=== PATIENT | male | born 1995 | race African-American/Black ===

== ENCOUNTER 2019-04-26 23:43 | Emergency (ER) | payer OTHER ==
[2019-04-27] MEDS ORDERED: ACETAMINOPHEN 325 MG TABLET ONE (00:58)
[2019-04-27] MEDS ORDERED: IBUPROFEN 400 MG TAB ONE (00:58)
--- NOTE | 2019-04-27 02:47 | EDPHYS ---
Physician Documentation [facility] Name: Sean Buitrago Age: 23 yrs Sex: Male : 1995 Arrival Date: 04/26/2019 Time: 23:46 Bed 20 Private MD: ED Physician Ja Ramírez HPI: 04/27 00:05 This 23 yrs old Black Male presents to ER via Ambulatory with complaints of Back Injury.cp 00:05 The patient or guardian complains of an injury, pain, that is acute. cp 00:05 The symptoms are located on the cervical and thoracic spine. Onset: The cp symptoms/episode began/occurred today. Context: The neck injury/problem resulted from performing backward flip, patient reports he landed on back of head and neck. Patient reports brief LOC and admits to drinking alcohol tonight. Associated signs and symptoms: Pertinent positives: neck and upper back pain, Pertinent negatives: bladder incontinence, bowel incontinence, numbness, weakness. Severity of symptoms: in the emergency department the symptoms are unchanged, despite home interventions. Historical: - Allergies: 04/26 23:51 No Known Allergies; la1 - PMHx: 23:51 None; la1 - Immunization history:: Adult Immunizations up to date. - Social history:: Smoking status: Patient uses tobacco products, smokes one-half pack cigarettes per day. - Ebola Screening: : No symptoms or risks identified at this time. ROS: 04/27 00:10 Constitutional: Negative for body aches, chills, fever, poor PO intake. cp 00:10 Eyes: Negative for injury, pain, redness, and discharge. cp 00:10 Neck: Positive for pain with movement, pain at rest, bony tenderness, Negative for stiffness. 00:10 Cardiovascular: Negative for chest pain. 00:10 Respiratory: Negative for cough, shortness of breath, wheezing. 00:10 Abdomen/GI: Negative for abdominal pain, nausea, vomiting, and diarrhea. 00:10 Back: Positive for pain at rest, pain with movement, of the thoracic area. 00:10 Skin: Negative for rash. 00:10 Neuro: Positive for loss of consciousness, Negative for altered mental status, numbness, weakness. 00:10 All other systems are negative. Exam: 00:20 Head/Face: Normocephalic, atraumatic. cp 00:20 Constitutional: The patient appears in no acute distress, alert, awake, non-toxic, well developed, well nourished. 00:20 Eyes: Periorbital structures: appear normal, Pupils: equal, round, and reactive to cp light and accomodation, Extraocular movements: intact throughout, Sclera: no appreciated abnormality, Lids and lashes: appear normal, bilaterally. 00:20 ENT: External ear(s): are unremarkable, Ear canal(s): are normal, clear, TM's: dullness, bilaterally, Nose: is normal, Mouth: Lips: moist, Oral mucosa: pink and intact, moist, Posterior pharynx: is normal, airway is patent, no erythema, no exudate. 00:20 Neck: C-spine: C-collar placed in ED, vertebral tenderness, that is mild, appreciated at C6 and C7, crepitus, is not appreciated. 00:20 Chest/axilla: Inspection: normal, Palpation: is normal, no crepitus, no tenderness. 00:20 Cardiovascular: Rate: normal, Rhythm: regular. 00:20 Respiratory: the patient does not display signs of respiratory distress, Respirations: normal, no use of accessory muscles, no retractions, no splinting, no tachypnea, Breath sounds: are clear throughout, no decreased breath sounds, no stridor, no wheezing. 00:20 Abdomen/GI: Inspection: abdomen appears normal, Palpation: abdomen is soft and non-tender, in all quadrants, rebound tenderness, is not appreciated, voluntary guarding, is not appreciated, involuntary guarding, is not appreciated. 00:20 Back: pain, that is mild, of the thoracic area. 00:20 Musculoskeletal/extremity: Exam is negative for decreased range of motion, deformity, ROM: intact in all extremities. 00:20 Neuro: Orientation: to person, place \T\ time. Mentation: lucid, able to follow commands, Motor: moves all fours, strength is normal, Sensation: no obvious gross deficits. Vital Signs: 04/26 23:51 BP 130 / 090; Pulse 110; Resp 16; Temp 97.8; Pulse Ox 98% on R/A; Weight 62.6 kg; la1 Height 6 ft. 0 in. (182.88 cm); 04/27 00:15 BP 116 / 86; Pulse 70; Resp 16 S; Pulse Ox 100% on R/A; cc3 01:48 BP 124 / 89; Pulse 61; Resp 17 S; Pulse Ox 100% on R/A; cc3 02:29 BP 116 / 78; Pulse 69; Resp 16 S; Pulse Ox 100% on R/A; cc3 03:00 BP 115 / 81; Pulse 67; Resp 16 S; Pulse Ox 100% on R/A; cc3 04/26 23:51 Body Mass Index 18.72 (62.60 kg, 182.88 cm) la1 [place] Coma Score: 00:20 Eye Response: spontaneous(4). Verbal Response: oriented(5). Motor Response: obeys cp commands(6). Total: 15. MDM: 04/26 23:54 Patient medically screened. cp 04/27 00:45 Differential diagnosis: C-Spine Fracture Unstable Vertebral Fracture Whiplash Injury cp thoracic fracture, concussion. 02:45 Data reviewed: vital signs, nurses notes, radiologic studies, CT scan. cp 02:45 Counseling: I had a detailed discussion with the patient and/or guardian regarding: the cp historical points, exam findings, and any diagnostic results supporting the discharge/admit diagnosis, radiology results, to return to the emergency department if symptoms worsen or persist or if there are any questions or concerns that arise at home. Special discussion: Based on the patient's history, exam and DX evaluation, there is no indication for emergent intervention or inpatient TX. It is understood by the patient/guardian that if the SXs persist or worsen they need to return immediately for re-evaluation. ED course: VSS. CT report negative for fracture or intracranial injury. Will discharge to home with head injury precautions. 04/27 00:27 Order name: CT Thoracic Spine Wo Cont cp 04/27 00:26 Order name: Cervical Collar; Complete Time: 00:48 cp 04/27 00:40 Order name: CT Head C Spine cp Administered Medications: 00:40 Drug: Ibuprofen 800 mg Route: PO; cc3 01:40 Follow up: Response: No adverse reaction; Pain is decreased cc3 00:40 Drug: Tylenol 650 mg Route: PO; cc3 01:40 Follow up: Response: No adverse reaction; Pain is decreased cc3 Disposition: 04/27/19 02:47 Discharged to Home. Impression: Strain of muscle and tendon of back wall of thorax, Strain of muscle, fascia and tendon at neck level. - Condition is Stable. - Discharge Instructions: Muscle Strain, Cervical Sprain, Neck Exercises. - Prescriptions for Ibuprofen 800 mg Oral Tablet - take 1 tablet by ORAL route every 8 hours As needed take with food; 30 tablet. Cyclobenzaprine 10 mg Oral Tablet - take 1 tablet by ORAL route every 8 hours As needed; 20 tablet. - Medication Reconciliation Form, Thank You Letter, Antibiotic Education, Prescription Opioid Use form. - Follow up: Private Physician; When: 2 - 3 days; Reason: Recheck today's complaints. - Problem is new. - Symptoms have improved. Addendum: 04/28/2019 19:37 Co-signature as Attending Physician, Ja Ramírez MD. g s Signatures: Dispatcher [employer] EDMS Aravind Williamson RN RN la1 Kaleb Henry PA PA cp Starr, Gregory, MD MD Teri Rojas 3 Corrections: (The following items were deleted from the chart) 04/27 02:14 00:29 C Spine Wo Con+CT.RAD.BRZ ordered. EDHI EDMS 03:15 02:47 04/27/2019 02:47 Discharged to Home. Impression: Strain of muscle and tendon of cc3 back wall of thorax; Strain of muscle, fascia and tendon at neck level. Condition is Stable. Forms are Medication Reconciliation Form, Thank You Letter, Antibiotic Education, Prescription Opioid Use. Follow up: Private Physician; When: 2 - 3 days; Reason: Recheck today's complaints. Problem is new. Symptoms have improved. cp
--- NOTE | 2019-04-27 02:47 | ER ---
Nurse's Notes [facility] Name: Sean Buitrago Age: 23 yrs Sex: Male : 1995 Arrival Date: 04/26/2019 Time: 23:46 Bed 20 Private MD: Diagnosis: Strain of muscle and tendon of back wall of thorax;Strain of muscle, fascia and tendon at neck level Presentation: 04/26 23:50 Presenting complaint: Patient states: i BROKE MY BACK A YEAR AGO AND TONIGHT I DID A la1 BACK FLIP AND ITS HURTING AGAIN ON THE LEFT SIDE. Transition of care: patient was not received from another setting of care. Onset of symptoms was April 26, 2019. Risk Assessment: Do you want to hurt yourself or someone else? Patient reports no desire to harm self or others. Initial Sepsis Screen: Does the patient meet any 2 criteria? No. Patient's initial sepsis screen is negative. Does the patient have a suspected source of infection? No. Patient's initial sepsis screen is negative. Care prior to arrival: None. 23:50 Method Of Arrival: Ambulatory la1 23:50 Acuity: ZHANG 4 la1 Triage Assessment: 23:55 General: Appears in no apparent distress. uncomfortable, Behavior is calm, cooperative, cc3 appropriate for age. Pain: Complains of pain in thoracic area. Historical: - Allergies: 23:51 No Known Allergies; la1 - PMHx: 23:51 None; la1 - Immunization history:: Adult Immunizations up to date. - Social history:: Smoking status: Patient uses tobacco products, smokes one-half pack cigarettes per day. - Ebola Screening: : No symptoms or risks identified at this time. Screenin:55 Abuse screen: Denies threats or abuse. Denies injuries from another. Nutritional cc3 screening: No deficits noted. Tuberculosis screening: No symptoms or risk factors identified. Fall Risk Ambulatory Aid- None/Bed Rest/Nurse Assist (0 pts). Gait- Normal/Bed Rest/Wheelchair (0 pts) Mental Status- Oriented to own ability (0 pts). Assessment: 23:55 General: Appears in no apparent distress. uncomfortable, Behavior is calm, cooperative, cc3 appropriate for age. Pain: Complains of pain in thoracic area. Neuro: Level of Consciousness is awake, alert, obeys commands, Oriented to person, place, time, situation, Appropriate for age. Cardiovascular: Denies chest pain, Patient's skin is warm and dry. Respiratory: Airway is patent Respiratory effort is even, unlabored, Respiratory pattern is regular, symmetrical. GI: Abdomen is flat. : No signs and/or symptoms were reported regarding the genitourinary system. EENT: No signs and/or symptoms were reported regarding the EENT system. Derm: No signs and/or symptoms reported regarding the dermatologic system. Musculoskeletal: Circulation, motion, and sensation intact. Range of motion: intact in all extremities. 04/27 00:18 Reassessment: Patient appears in no apparent distress at this time. Patient and/or cc3 family updated on plan of care and expected duration. Pain level reassessed. Patient is alert, oriented x 3, equal unlabored respirations, skin warm/dry/pink. 01:40 Reassessment: Patient appears in no apparent distress at this time. Patient and/or cc3 family updated on plan of care and expected duration. Pain level reassessed. Patient is alert, oriented x 3, equal unlabored respirations, skin warm/dry/pink. Patient came back from CT scan department, awaiting result. 02:20 Reassessment: Patient appears in no apparent distress at this time. Patient and/or cc3 family updated on plan of care and expected duration. Pain level reassessed. Patient is alert, oriented x 3, equal unlabored respirations, skin warm/dry/pink. 03:15 Reassessment: Patient appears in no apparent distress at this time. Patient and/or cc3 family updated on plan of care and expected duration. Pain level reassessed. Patient is alert, oriented x 3, equal unlabored respirations, skin warm/dry/pink. PA Page discharged the patient home with prescription given. No IV cannula in situ. Patient left ER vitally stable and ambulatory with his friend. Patient denies pain at this time. Patient states feeling better. Patient states symptoms have improved. Vital Signs: 04/26 23:51 BP 130 / 090; Pulse 110; Resp 16; Temp 97.8; Pulse Ox 98% on R/A; Weight 62.6 kg; la1 Height 6 ft. 0 in. (182.88 cm); 04/27 00:15 BP 116 / 86; Pulse 70; Resp 16 S; Pulse Ox 100% on R/A; cc3 01:48 BP 124 / 89; Pulse 61; Resp 17 S; Pulse Ox 100% on R/A; cc3 02:29 BP 116 / 78; Pulse 69; Resp 16 S; Pulse Ox 100% on R/A; cc3 03:00 BP 115 / 81; Pulse 67; Resp 16 S; Pulse Ox 100% on R/A; cc3 04/26 23:51 Body Mass Index 18.72 (62.60 kg, 182.88 cm) la1 [place] Coma Score: 00:20 Eye Response: spontaneous(4). Verbal Response: oriented(5). Motor Response: obeys cp commands(6). Total: 15. ED Course: 04/26 23:46 Patient arrived in ED. am2 23:50 Triage completed. la1 23:51 Arm band placed on left wrist. la1 23:53 Kaleb Henry PA is PHCP. cp 23:53 Ja Ramírez MD is Attending Physician. cp 23:55 Teri Rojas is Primary Nurse. cc3 23:55 Patient has correct armband on for positive identification. Bed in low position. Call cc3 light in reach. Side rails up X 1. Pulse ox on. NIBP on. 04/27 02:27 CT Thoracic Spine Wo Cont In Process Unspecified. EDMS 02:29 CT Head C Spine In Process Unspecified. EDMS 03:15 No provider procedures requiring assistance completed. Patient did not have IV access cc3 during this emergency room visit. Administered Medications: 00:40 Drug: Ibuprofen 800 mg Route: PO; cc3 01:40 Follow up: Response: No adverse reaction; Pain is decreased cc3 00:40 Drug: Tylenol 650 mg Route: PO; cc3 01:40 Follow up: Response: No adverse reaction; Pain is decreased cc3 Outcome: 02:47 Discharge ordered by MD. cp 03:15 Patient left the ED. cc3 03:15 Discharged to home ambulatory, with family. cc3 03:15 Condition: stable 03:15 Discharge instructions given to patient, Instructed on discharge instructions, follow up and referral plans. medication usage, Demonstrated understanding of instructions, follow-up care, medications, Prescriptions given X 2. Signatures: Dispatcher [employer] EDNH Aravind Williamson RN RN la1 Kaleb Henry PA PA cp Moreno, Amanda am2 Teri Rojas cc3
--- NOTE | 2019-04-28 10:23 | RAD REPORT ---
EXAM DESCRIPTION: CT - Head C Spine Mpr Wo Con - 04/27/2019 2:26 am CLINICAL HISTORY: LOC with back flip COMPARISON: None. TECHNIQUE: CT HEAD NECK WITHOUT IV CONTRAST on 04/27/2019 12:40 AM CDT This exam was performed according to our departmental dose-optimization program, which includes autom ated exposure control, adjustment of the mA and/or kV according to patient size and/or use of iterati ve reconstruction technique. FINDINGS: There is no acute hemorrhage, mass effect or midline shift. Carrasco-white differentiation is preserved. There is no hydrocephalus. There is no significant volume loss for age. The calvarium is intact. Orbits and globes are unremarkable. The maxillary sinuses are nearly complet elia opacified. Right sphenoid sinus is opacified. Mastoid air cells are clear. There is no acute fracture. Alignment is anatomic. Anterior fusion of C6, C7 and T1 was performed. Po sterior fusion was performed at the same levels. Disc spaces are maintained. Vertebral body heights are preserved. Soft tissues are unremarkable. IMPRESSION: No definite posttraumatic findings. Electronically signed by: Aleks Dumont MD 04/27/2019 2:35 AM CDT Due to temporary technical issues with the PACS/Fluency reporting system, reports are being signed by the in house radiologist as a courtesy to ensure prompt reporting. The interpreting radiologist is f ully responsible for the content of the report.
--- NOTE | 2019-04-28 10:24 | RAD REPORT ---
EXAM DESCRIPTION: CT - Thoracic Spine W/o Cont - 04/27/2019 2:26 am CLINICAL HISTORY: PAIN COMPARISON: None. TECHNIQUE: CT THORACIC SPINE WITHOUT IV CONTRAST on 04/27/2019 12:27 AM CDT This exam was performed according to our departmental dose-optimization program, which includes autom ated exposure control, adjustment of the mA and/or kV according to patient size and/or use of iterati ve reconstruction technique. FINDINGS: There is no acute fracture. Alignment is anatomic. There are postoperative changes of lowe r cervical fusion. Disc spaces are maintained. Vertebral body heights are preserved. Soft tissues are unremarkable. IMPRESSION: No acute fracture or subluxation. Electronically signed by: Aleks Dumont MD 04/27/2019 2:33 AM CDT Due to temporary technical issues with the PACS/Fluency reporting system, reports are being signed by the in house radiologist as a courtesy to ensure prompt reporting. The interpreting radiologist is f ully responsible for the content of the report.
== END 2019-04-27 03:15 | disposition home or self-care (01) ==
LOC: ER 23:43
DX: S16.1XXA Strain of muscle, fascia and tendon at neck level, initial encounter (principal); S29.012A Strain of muscle and tendon of back wall of thorax, initial encounter; X58.XXXA Exposure to other specified factors, initial encounter; Y93.89 Activity, other specified; Y92.9 Unspecified place or not applicable; F17.210 Nicotine dependence, cigarettes, uncomplicated
CPT/HCPCS: 70450; 72125; 72128; 99284